=== PATIENT | male | born 1985 | race Two or more races ===

== ENCOUNTER 2024-07-26 07:54 | Outpatient (AMB) | payer BC, SELFPAY ==
--- OUTSIDE RECORDS SUMMARY | 2024-07-26 07:57 | XMS_ITS | Clinical Summary ---
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 DX:Erosion of gastroesophageal junction Asthma 07/01/2006 DX:Asthma Family History Medical History Relation Name Comments Asthma Brother 1 Esophageal cancer Father Other: esophageal cancer Father Breast cancer Paternal Grandmother Relation Name Status Comments Brother 1 Alive 2,one has asthm a Brother 2 Alive 1, step sister Father both healthy Maternal Grandfather Mother Alive Paternal Grandmother Social History Tobacco Use Types Packs/Day Years Used Date Smoking Tobacco: Never Smokeless Tobacco: Never Alcohol Use Standard Drinks/Week Comments Yes 0 (1 standard drink = 0.6 oz pur e alcohol) Sex and Gender Information Value Date Recorded Sex Assigned at Not on file Legal Sex Male 11:10 PM EST Gender Identity Not on file Sexual Orientation Not on file Obstetrics History Last Filed Vital Signs Vital Sign Reading Time Taken Comments Blood Pressure 132/79 11/30/2023 12:29 PM EDT Pulse 83 11/30/2023 12:29 PM EDT Temperature - - Respiratory Rate - - Oxygen Saturation - - Inhaled Oxygen Concentration - - Weight 83.7 kg (184 lb 8 oz) 11/30/2023 12:29 PM EDT Height 179.1 cm (5' 10.5 ) 11/30/2023 12:29 PM E DT Body Mass Index 26.1 11/30/2023 12:29 PM EDT Plan of Treatment Upcoming Encounters Date Type Department Care Team (Late st Contact Info) Description 12/09/2024 8:30 AM EDT Office Visit Internal Medicine - [address] [address] Santy Shen MD [address] [place] [id number] Health Maintenance Due Date Last Done Comments Hepatitis B Vaccines (1 of 3 - 19+ 3-dose series) 02/06/2003 Pneumococcal Vaccine: Pediatrics (0 to 5 Years) and At-Risk Patients (6 to 64 Years) (2 of 2 - PCV) 09/10/2016 09/11/2015 Depression Screening 01/25/2022 HIV Screening 01/25/2022 Hepatitis C Screening 01/25/2022 Social Influencers of Health Screening 01/25/2022 COVID-19 Vaccine (3 - 2023- season) 2023 06/27/2020, 05/31/2020 Cholesterol Screening (Lipid Panel) 11/29/2028 11/30/2023 DTaP,Tdap,and Td Vaccines (3 - Td or Tdap) 11/28/2032 11/28/2022, 03/04/2012 Meningococcal ACWY Vaccine Aged Out 10/14/2002, No longer eligible based on patient's age to complete this topic Influenza Vaccine Completed 11/30/2023, , 11/22/2021, Additional history exists HIB Vaccines Aged Out No longer eligi ble based on patient's age to complete this topic HPV Vaccines Aged Out No longer eligi ble based on patient's age to complete this topic Hepatitis A Vaccines Aged Out No long er eligible based on patient's age to complete this topic IPV Vaccines Aged Out No longer eligi ble based on patient's age to complete this topic MMR Vaccines Aged Out No longer eligi ble based on patient's age to complete this topic Meningococcal B Vaccine Aged Out No l onger eligible based on patient's age to complete this topic RSV Immunization Patients Under 20 months Aged Out No longer eligible based on patient's age to complete this topic Varicella Vaccines Aged Out No longer eligible based on patient's age to complete this topic Insurance [facility] Care Teams Hospitality Ambassador Relationship Specialty Start Date End Date Santy Shen MD PCP - General Internal Medicine 11/25/11
--- NOTE | 2024-07-26 08:02 | MHC.OFFVIS ---
Vital Signs 07/26/24 08:05 Height 5 ft 10.5 in Weight 192 lb 4 oz BMI 27.2 BP 120/78 Blood Pressure Location Lt brachial Position Sitting Pulse 62 Pulse Source Pulse Oximeter Pulse Oximetry (%) 97 Oxygen Delivery Method Room Air Intake Visit Reasons: ENP - Snoring Intake Note: Patient presents [employer] Snoring. Patient states has noticed abnormal breathing during sleep with gasping arousals also noticed during the day. patient also states both mother and brother had sleep studies and both are now on CPAP. Accompanied by: Self / Same As Patient Allergies cat dander Allergy (Unknown, Verified 07/26/24 08:06) Unknown Seasonal Allergies Allergy (Unknown, Verified 07/26/24 08:06) Unknown HPI Comments Details: 39 year old male, presents for sleep evaluation referred to us by his PCP. His c/o gasping arousals with pauses daily and loud snoring throughout the night for years. He goes to bed at 10pm and gets up at 6am. He has asthma and environmental allergies, has an inhaler prn use. He talks in his sleep and grinds his teeth and does not use a mouth gaurd. Vivid dreams, recurring like spiders jumping on him. Denies morning headaches. He has RLS symptoms, and notices both feet are really uncomfortable with a wierd tingling sensation and he needs to move his feet and flex them. Mood tends to fluctuate and he is seeing a therapist for the last year. His memory is good, being evaluated for ADHD, his stm can be poor. 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 Labs T [facility] Medical History Seasonal allergies Asthma Surgical History H/O vasectomy S/P laser trabeculoplasty of eye Hx of appendectomy Social History Alcohol intake: current Alcohol intake frequency: a few times a month Patient Tobacco Use Status: Never used Tobacco Physical Exam Vital Signs: Last Vital Signs Pulse 62 07/26/24 08:05 BP 120/78 07/26/24 08:05 Pulse Ox 97 07/26/24 08:05 Oxygen Delivery Method Room Air 07/26/24 08:05 BMI result Body Mass Index 27.2 Const General: cooperative, comfortable and no acute distress Orientation/consciousness: patient oriented x3 HEENT Face and sinus: Yes face symmetric Teeth and gingiva: other (M[place]ampti score is 3) Eyes Pupils: Equal, round and reactive pupils present Neck Neck: Yes full ROM and Yes supple Resp Effort & Inspection: normal respiratory effort and able to speak in complete sentences Neuro General: patient oriented x3 and moves all extremities Cranial nerves: Yes Facial sensation intact/muscles of mastication intact, Yes Equal, round and reactive pupils present, Yes Normal accommodation reflex present, Yes Normal facial strength present, Yes Midline tongue present, Yes Ability to bilaterally rotate head present and Yes Ability to bilaterally elevate shoulders present Cognition (Neuro): normal cognition Gait exam (Neuro): Normal gait present Motor exam (neuro): 5/5 motor strength present throughout and Normal motor muscle tone present throughout Deep tendon reflexes (DTR's): Right triceps reflex intensity grade: 2+, Left triceps reflex intensity grade: 2+, Rt Biceps (C5, C6): 2+, Left biceps reflex intensity grade: 2+, Right brachioradialis reflex intensity grade: 2+, Left brachioradialis reflex intensity grade: 2+, Right patellar reflex intensity grade: 2+, Left patellar reflex intensity grade: 2+, Right ankle reflex intensity grade: 2+ and Left ankle reflex intensity grade: 2+ Psych Appearance: grossly normal Attitude: cooperative Thought process: Normal thought process present Thought content: Normal thought content present Assessment & Plan Assessment & Plan (1) Excessive daytime sleepiness: Code(s): G47.19 - Other hypersomnia Category: Medical (2) Loud snoring: Code(s): R06.83 - Snoring Category: Medical (3) Chronic fatigue: Code(s): R53.82 - Chronic fatigue, unspecified Category: Medical Plan HST for sleep disturbances Labs to r/o deficiencies, anemia etc. f/u in 3 months Orders: Orders Methylmalonic Acid Today G47.19 - Other hypersomnia, G47.9 - Sleep disorder, unspecified, R53.83 - Other fatigue Vitamin D 25-OH Total Today G47.19 - Other hypersomnia Vitamin B12 and Folate Today G47.19 - Other hypersomnia Complete Blood Count no Diff Today G47.19 - Other hypersomnia Comprehensive Met. Panel Today G47.19 - Other hypersomnia Ferritin Today G47.19 - Other hypersomnia Homocysteine Today G47.19 - Other hypersomnia, G47.9 - Sleep disorder, unspecified, R53.83 - Other fatigue RT home sleep study Today G47.19 - Other hypersomnia TSH reflex Free T4 Today G47.19 - Other hypersomnia Patient Instructions: Sleep Hygiene provided: set a scheduled bedtime and wake time to help regulate the circadian rhythm and balance the release of pituitary hormones. Sleep in a dark room, temperatures below 68 degrees, and no devices n bed. Limit caffeinated products 6 hours prior to bed, and limit fluids 2-4 hours prior to bed. Gentle night yoga, diffusing essential oils, and playing soft music can be relaxing. Coding Level of Care Code New Pt Level 4 (71228) Diagnoses Excessive daytime sleepiness G47.19 Loud snoring R06.83 Chronic fatigue R53.82 Time Spent (min) 30 Comment Evaluation Sleep Questionnaire Difficulty falling asleep: Yes Difficulty staying asleep?: Yes Number of arousals: 4-5 Snoring: Yes Witnessed apneas: Yes Gasping arousals: Yes Nocturia: No GERD: No Vivid dreams: Yes Acting out dreams: Yes Abnormal behavior in sleep: No Abnormal movements in sleep: No Morning headaches: No Excessive daytime sleepiness: No Daytime naps: No Restless legs: Yes Hallucinations: No Sleep paralysis: No Drop attacks: No Sleep Study: No CPAP: No
[2024-07-26 08:05] VITALS: BP 120/78; PULSE 62; O2SAT 97; BMI 27.2
== END 2024-07-26 08:45 | disposition home or self-care (01) ==
PROVIDERS: PCP Internal Medicine; Visit Provider Physician Assistant Medical
DX: G47.19 Other hypersomnia (principal); R06.83 Snoring; R53.82 Chronic fatigue, unspecified
CPT/HCPCS: 99204

== ENCOUNTER → 2024-10-04 09:58 | Outpatient (REF) | payer BC, SELFPAY ==
--- OUTSIDE RECORDS SUMMARY | 2024-10-04 11:08 | XMS_ITS ---
[facility] Name [facility] Organization [facility] Care Team Organization Name Specialty Phone Email Start Date End Da te [facility] Ruth Ann Barr APRN Primary Care 06/23/2022 10/05/2023
--- OUTSIDE RECORDS SUMMARY | 2024-10-04 11:08 | XMS_ITS | Clinical Summary ---
Author Organization [facility] Address [address] [place] [address] Phone Care Team Providers Care Take Off Man Name Role Phone Santy Shen MD Primary Care Provider [phone] Surgical History Surgery Date Site/Laterality Comments APPENDECTOMY PROCEDURE: CA APPENDECTOMY EYE SURGERY PROCEDURE: CA TRABECULOPLASTY BY LASER SURGERY VASECTOMY PROCEDURE: CA VASECTOMY UNI/BI SPX W/POSTOP SEMEN EXAMS Medical [...] AM EDT Office Visit Internal Medicine - [address] [address] Santy Shen MD [address] [place] [id number] Health Maintenance Due Date Last Done Comments Hepatitis B Vaccines (1 of 3 - 19+ 3-dose series) 02/06/2003 Pneumococcal Vaccine: Pediatrics (0 to 5 Years) and At-Risk Patients (6 to 49 Years) (2 of 2 - PCV) 09/10/2016 09/11/2015 HIV Screening 01/25/2022 Hepatitis C Screening 01/25/2022 Social Influencers of Health Screening 01/25/2022 COVID-19 Vaccine ( season) 2023 12/04/2022, 03/14/2022, 11/14/2020, Additional history exists Depression Screening 02/17/2024 Influenza Vaccine (#1) 2024 , 11/28/2022, 11/22/2021, Additional history exists Cholesterol Screening (Lipid Panel) 11/29/2028 11/30/2023 DTaP,Tdap,and Td Vaccines (3 - Td or Tdap) 11/28/2032 11/28/2022, 03/04/2012 Meningococcal ACWY Vaccine Aged Out 10/14/2002, No longer eligible based on patient's age to complete this topic HIB Vaccines Aged Out No longer eligi [...] on patient's age to complete this topic Procedures Procedure Name Priority Date/Time Associated Diagnosis Comments METHYLMALONIC ACID, SERUM Routine 07/26/2024 10:07 AM EDT Fatigue Sleep disorder Other hypersomnia VITAMIN D 25 HYDROXY Routine 07/26/2024 10:07 AM EDT Fatigue Sleep disorder Other hypersomnia COMPLETE BLOOD COUNT Routine 07/26/2024 10:07 AM EDT Fatigue Sleep disorder Other hypersomnia VITAMIN B12 AND FOLATE Routine 10:07 AM EDT Fatigue Sleep disorder Other hypersomnia COMPREHENSIVE METABOLIC PANEL Routine 07/26/2024 10:07 AM EDT Fatigue Sleep disorder Other hypersomnia FERRITIN Routine 07/26/2024 10:07 AM EDT Fatigue Sleep disorder Other hypersomnia HOMOCYSTEINE, SERUM Routine 07/26/2024 1 0:07 AM EDT Fatigue Sleep disorder Other hypersomnia THYROID STIMULATING HORMONE WITH REFLEX TO FREE T4 AND FREE T3 Routine 07/26/2024 10:07 AM EDT Fatigue Sleep disorder Other hypersomnia from Last 3 Months Results * Thyroid stimulating hormone with reflex to free t4 and free t3 (07/26/2024 10:07 AM EDT) TSH 1.72 0.40 - 4.00 mcIU/mL LAB CHEMISTRY METHOD 07/26/2024 4:[address] [facility] Blood Venous blood specimen / Unknown Venipuncture / Unknown 07/26/2024 10:07 AM EDT 07/26/2024 10:07 AM EDT Cherri ARAIZA LAB BLOOD ORDERABLES Final Resu lt Performing Organization Address [facility]/ZIP Co de Phone Number [facility] [address] [place] [address], * Vitamin B12 and folate (07/26/2024 10:07 AM EDT) [facility] Vitamin B-12 375 250 - 900 pcg/mL LAB CHEMISTRY METHOD 07/26/2024 4:[address] [facility] Folate 11.8 2.8 - 17.0 ng/ml LAB CHEMISTRY METHOD 07/26/2024 4:[address] [facility] Blood Venous blood specimen / Unknown Venipuncture / Unknown 07/26/2024 10:07 AM EDT 07/26/2024 10:07 AM EDT Cherri Mt [place] LAB BLOOD ORDERABLES Final Resu lt Performing Organization Address [facility] [facility] de Phone Number [facility] [address] [place] [address], * Methylmalonic acid, serum (07/26/2024 10:07 AM EDT) [facility] Methylmalonic Acid 0.15 <0.40 umol/L 08/01/2024 5:28 AM EDT [facility] Comment: If applicable, any drug confirmation testing reported here was developed and the performance characteristics determined by [facility]. This confirmation testing has not been cleared or approved by the FDA. The laboratory is regulated under CLIA as qualified to perform high-complexity testing. This test is used for patient testing purposes. It should not be regarded as investigational or for research. Test performed at [facility], [facility] [address] [place] [address] Farzana Soto MD, PhD - [employer] Blood Venous blood specimen / Unknown Venipuncture / Unknown 07/26/2024 10:07 AM EDT 07/26/2024 10:07 AM EDT [facility] LAB BLOOD ORDERABLES Final Resu lt [facility] [address] [place] [address] * (ABNORMAL) Vitamin D 25 hydroxy (07/26/2024 10:07 AM EDT) Pathologist [facility] Vit D, 25-Hydroxy 18.8(L) 30.0 - 80.0 ng/mL LAB CHEMISTRY METHOD 07/26/2024 4:[address] [facility] Blood Venous blood specimen / Unknown Venipuncture / Unknown 07/26/2024 10:07 AM EDT 07/26/2024 10:07 AM EDT [facility] LAB BLOOD ORDERABLES Final Resu lt Performing Organization Address City/[facility]/ZIP Co de Phone Number [facility] [address] [place] [address], * (ABNORMAL) Complete blood count (07/26/2024 10:07 AM EDT) [facility] WBC 4.9 4.8 - 10.8 K/mcL LAB HEMETOLOGY METHOD 07/26/2024 12:[address] [facility] RBC 4.70 4.50 - 5.50 M/mcL LAB HEMETOLOGY METHOD 07/26/2024 12:[address] [facility] Hemoglobin 14.1 13.5 - 17.5 g/dL LAB HEMETOLOGY METHOD 07/26/2024 12:[address] [facility] Hematocrit 41.6(L) 42.0 - 54.0 % LAB HEMETOLOGY METHOD 07/26/2024 12:[address] [facility] MCV 87.9 79.0 - 98.0 FL LAB HEMETOLOGY METHOD 07/26/2024 12:[address] [facility] MCH 29.8 27.0 - 32.0 pcg LAB HEMETOLOGY METHOD 07/26/2024 12:[address] [facility] MCHC 33.9 32.0 - 37.0 g/dL LAB HEMETOLOGY METHOD 07/26/2024 12:11 PM [facility] RDW 12.5 11.0 - 15.0 % LAB HEMETOLOGY METHOD 07/26/2024 12:11 PM [facility] Platelets 202 130 - 400 K/mcL LAB HEMETOLOGY METHOD 07/26/2024 12:11 PM [facility] MPV 10.6 7.0 - 11.0 FL LAB HEMETOLOGY METHOD 07/26/2024 12:11 PM [facility] NRBC 0.0 <1.0 % LAB HEMETOLOGY METHOD 07/26/2024 12:11 PM [facility] NRBC Absolute 0.00 <0.10 K/mcL LAB HEMETOLOGY METHOD 07/26/2024 12:11 PM [facility] Blood Venous blood specimen / Unknown Venipuncture / Unknown 07/26/2024 10:07 AM EDT 07/26/2024 10:07 AM EDT us Cherri ARAIZA LAB BLOOD ORDERABLES Final Resu lt [facility] [address] [place] [address], * Homocysteine, total (07/26/2024 10:07 AM EDT) Homocysteine 8.6 3.2 - 10.7 mcmol/L LAB CHEMISTRY METHOD 07/26/2024 4:49 PM [facility] Blood Venous blood specimen / Unknown Venipuncture / Unknown 07/26/2024 10:07 AM EDT 07/26/2024 10:07 AM EDT Cherri ARAIZA LAB BLOOD ORDERABLES Final Resu lt [facility] [address] [place] [address], [place] [phone] * Ferritin (07/26/2024 10:07 AM EDT) Pathologist [facility] Ferritin 64 26 - 388 ng/mL LAB CHEMISTRY METHOD 07/26/2024 4:[address] [facility] Blood Venous blood specimen / Unknown Venipuncture / Unknown 07/26/2024 10:07 AM EDT 07/26/2024 10:07 AM EDT Cherri ARAIZA LAB BLOOD ORDERABLES Final Resu lt Performing Organization Address City/[facility] [facility]/ZIP Co de Phone Number [facility] [address] [place] [address], [place] [phone] * Comprehensive metabolic panel (07/26/2024 10:07 AM EDT) [facility] Sodium 141 133 - 145 mmol/L LAB CHEMISTRY METHOD 07/26/2024 4:[address] [facility] Potassium 4.6 3.5 - 5.5 mmol/L LAB CHEMISTRY METHOD 07/26/2024 4:[address] [facility] Chloride 108 96 - 110 mmol/L LAB CHEMISTRY METHOD 07/26/2024 4:[address] [facility] CO2 29 21 - 32 mmol/L LAB CHEMISTRY METHOD 07/26/2024 4:[address] [facility] Anion Gap 4 3 - 11 LAB CHEMISTRY METHOD 07/26/2024 4:[address] [facility] Glucose 93 70 - 100 mg/dL LAB CHEMISTRY METHOD 07/26/2024 4:49 PM [facility] BUN 13 5 - 25 mg/dL LAB CHEMISTRY METHOD 07/26/2024 4:49 PM [facility] Creatinine 0.84 0.70 - 1.30 mg/dL LAB CHEMISTRY METHOD 07/26/2024 4:49 PM [facility] eGFR 113 >=60 mL/min/1. 73m2 LAB CHEMISTRY METHOD 07/26/2024 4:49 PM [facility] Comment:Calculation based on the Chronic Kidney Disease Epidemiology Collaboration (CKD-EPI) equation refit without adjustment for race. BUN/Creatinine Ratio 15.5 LAB CHEMISTRY METHOD 07/26/2024 4:49 PM [facility] Calcium 8.9 8.5 - 10.5 mg/dL LAB CHEMISTRY METHOD 07/26/2024 4:49 PM [facility] AST (SGOT) 26 10 - 42 unit/L LAB CHEMISTRY METHOD 07/26/2024 4:49 PM [facility] ALT (SGPT) 44 10 - 60 unit/L LAB CHEMISTRY METHOD 07/26/2024 4:49 PM [facility] Alkaline Phosphatase 85 42 - 121 unit/L LAB CHEMISTRY METHOD 07/26/2024 4:49 PM [facility] Total Protein 7.1 6.0 - 8.0 g/dL LAB CHEMISTRY METHOD 07/26/2024 4:49 PM [facility] Albumin 4.0 3.2 - 5.0 g/dL LAB CHEMISTRY METHOD 07/26/2024 4:49 PM [facility] Total Bilirubin 0.3 0.0 - 1.4 mg/dL LAB CHEMISTRY METHOD 07/26/2024 4:49 PM [facility] Blood Venous blood specimen / Unknown Venipuncture / Unknown 07/26/2024 10:07 AM EDT 07/26/2024 10:07 AM EDT us Cherri ARAIZA LAB BLOOD ORDERABLES Final Resu lt [facility] ([facility]) [facility] [address] [place] [address], [place] [phone] from Last 3 Months Insurance [facility] ([facility]) Care Teams Take Off Man Relationship Specialty Start Date End Date Santy Shen MD PCP - General Internal Medicine 11/25/11
== END ==
LOC: HO.SL 09:58
PROVIDERS: Visit Provider Physician Assistant Medical
DX: G47.19 Other hypersomnia (principal); R06.83 Snoring
CPT/HCPCS: 95806

== ENCOUNTER → 2024-10-04 10:23 | Outpatient (BNV) | payer BC, SELFPAY | PROVIDERS: Visit Provider Psychiatry & Neurology Neurology | DX: R06.83 Snoring (principal) | CPT/HCPCS: 95806 ==

== ENCOUNTER 2024-10-26 08:56 | Outpatient (AMB) | payer BC, SELFPAY ==
[2024-10-26 08:57] VITALS: BP 118/78; PULSE 70; O2SAT 98; BMI 27.2
--- NOTE | 2024-10-26 08:57 | MHC.OFFVIS ---
Vital Signs 10/26/24 08:57 Height 5 ft 10.5 in Weight 192 lb BMI 27.2 BP 118/78 Blood Pressure Location Lt brachial Position Sitting Pulse 70 Pulse Source Pulse Oximeter Pulse Oximetry (%) 98 Oxygen Delivery Method Room Air Intake Visit Reasons: 3m follow up Intake Note: Patient presents follow up Sleep. Labs/HST in chart(AHI-<1, IVELISSE-83%). Accompanied by: Self / Same As Patient Allergies cat dander Allergy (Unknown, Verified 10/26/24 08:59) Unknown Seasonal Allergies Allergy (Unknown, Verified 10/26/24 08:59) Unknown HPI Comments Details: 39 year old male presents for a follow up visit to review his HST results. 09/2024 HST c/w AHI of <1 and oxygen nadirs at 83%. Moderate snoring. His c/o him gasping for air and multiple arousals with pauses daily. He snores loudly at night for years. He goes to bed at 10pm and gets up at 6am. He has asthma and environmental allergies, uses his inhaler as needed. He talks in his sleep and grinds his teeth. He has mouth guard and does not like it or use. He has vivid dreams, repetitive will see spiders jumping on him. He denies morning headaches. He has RLS symptoms, and notices an uncomfortable sensation in his feet bilaterally. He has a with an uncomfortable tingling sensation which causes him to move and flex his feet. He will get out of bed and stretch his feet or walk. His mood fluctuates and he is seeing a therapist since last year. His memory is good, he is being evaluated for ADHD, his stm can be poor. 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 [facility] Medical History Seasonal allergies Asthma Surgical History H/O vasectomy S/P laser trabeculoplasty of eye Hx of appendectomy Social History Alcohol intake: current Alcohol intake frequency: a few times a month Patient Tobacco Use Status: Never used Tobacco Physical Exam Vital Signs: Last Vital Signs Pulse 70 10/26/24 08:57 BP 118/78 10/26/24 08:57 Pulse Ox 98 10/26/24 08:57 Oxygen Delivery Method Room Air 10/26/24 08:57 BMI result Body Mass Index 27.2 Const General: cooperative, comfortable and no acute distress Orientation/consciousness: patient oriented x3 HEENT Face and sinus: Yes face symmetric Teeth and gingiva: other (Mallampti score is 3) Eyes Pupils: Equal, round and reactive pupils present Neck Neck: Yes full ROM and Yes supple Resp Effort & Inspection: normal respiratory effort and able to speak in complete sentences Neuro General: patient oriented x3 and moves all extremities Cranial nerves: Yes Facial sensation intact/muscles of mastication intact, Yes Equal, round and reactive pupils present, Yes Normal accommodation reflex present, Yes Normal facial strength present, Yes Midline tongue present, Yes Ability to bilaterally rotate head present and Yes Ability to bilaterally elevate shoulders present Cognition (Neuro): normal cognition Gait exam (Neuro): Normal gait present Motor exam (neuro): 5/5 motor strength present throughout and Normal motor muscle tone present throughout Psych Appearance: grossly normal Mental Status: mental status grossly normal Speech and movement: Normal speech and movement present Attitude: cooperative Thought process: Normal thought process present Thought content: Normal thought content present Assessment & Plan Assessment & Plan (1) Excessive daytime sleepiness: Code(s): G47.19 - Other hypersomnia Category: Medical (2) RLS (restless legs syndrome): Code(s): G25.81 - Restless legs syndrome Category: Medical (3) Loud snoring: Code(s): R06.83 - Snoring Category: Medical (4) Chronic fatigue: Code(s): R53.82 - Chronic fatigue, unspecified Category: Medical Plan HST reviewed with pt. today in detail, it does not qualify for sleep apnea, he does snore moderately will refer for mouth guard/ oral appliance with dentist such as somno-guard to eliminate snoring. Chronic fatigue Labs reviewed with pt today Vit D is low. Start Vitamin D 2000units daily. RLS Start B12 1000mcg qhs. Start Magnesium 400mg po qpm for leg cramps. F/U in 6 months Medications: New magnesium oxide 400 mg PO DAILY 90 tabs 0RF leg cramps 3 months MDD 400mg G25.81 - Restless legs syndrome mecobalamin (vitamin B12) place tablet under tongue and allow to dissolve for at least30 secs before swallowing 1,000 mcg sublingual DAILY 90 tabs 3RF anemia 3 months MDD 1000mcg G25.81 - Restless legs syndrome, G47.19 - Other hypersomnia Refilled cholecalciferol (vitamin D3) take one tablet by mouth daily at night 50 mcg PO DAILY 90 caps 3RF low vitamin d 90 days MDD 2000 unit R53.82 - Chronic fatigue, unspecified Patient Instructions: Sleep Hygiene provided: set a scheduled bedtime and wake time to help regulate the circadian rhythm and balance the release of pituitary hormones. Sleep in a dark room, temperatures below 68 degrees, and no devices n bed. Limit caffeinated products 6 hours prior to bed, and limit fluids 2-4 hours prior to bed. Gentle night yoga, diffusing essential oils, and playing soft music can be relaxing. Call the office if you need a sleep dentistry referral or if you chose to use your own dentist for a mouth guard that works also, please inquire about the somno-guard and f/u in 6 monhts. Coding Level of Care Code Est Pt Level 4 (54829) Diagnoses Excessive daytime sleepiness G47.19 RLS (restless legs syndrome) G25.81 Loud snoring R06.83 Chronic fatigue R53.82
--- OUTSIDE RECORDS SUMMARY | 2024-10-26 10:31 | XMS_ITS | Clinical Summary ---
Author Organization [facility] Address [address] [place] [address] Phone Care Team Providers Care Operations Director Name Role Phone Santy Shen MD Primary Care Provider [phone] Surgical History Surgery Date Site/Laterality Comments APPENDECTOMY [...] AM EDT Office Visit Internal Medicine - [address] [phone] Santy Shen MD [address] [place] [id number] Health Maintenance Due Date Last Done Comments Hepatitis B Vaccines (1 of 3 - 19+ 3-dose series) 02/06/2003 Pneumococcal Vaccine: Pediatrics (0 to 5 Years) and At-Risk Patients (6 to 49 Years) (2 of 2 - PCV) 09/10/2016 09/11/2015 HIV Screening 01/25/2022 Hepatitis C Screening 01/25/2022 Social Influencers of Health Screening 01/25/2022 Depression Screening 02/17/2024 COVID-19 Vaccine ( season) 2024 12/04/2022, 03/14/2022, 11/14/2020, Additional history exists Influenza Vaccine (#1) 2024 , 11/28/2022, 11/22/2021, [...] LAB CHEMISTRY METHOD 07/26/2024 4:56 PM EDT [facility] Blood Venous blood specimen / Unknown Venipuncture / Unknown 07/26/2024 10:07 AM EDT 07/26/2024 10:07 AM EDT Cherri ARAIZA LAB BLOOD ORDERABLES Final Resu lt Performing Organization Address [facility]/ZIP Co de Phone Number [facility] [address] [place] [address], * Vitamin B12 and folate (07/26/2024 10:07 AM EDT) [facility] Vitamin B-12 375 250 - 900 pcg/mL LAB CHEMISTRY METHOD 07/26/2024 4:49 PM EDT [facility] Folate 11.8 2.8 - 17.0 ng/ml LAB CHEMISTRY METHOD 07/26/2024 4:49 PM EDT [facility] Blood Venous blood specimen / Unknown Venipuncture / Unknown 07/26/2024 10:07 AM EDT 07/26/2024 10:07 AM EDT Cherri [place] LAB BLOOD ORDERABLES Final Resu lt Performing Organization Address [facility] de Phone Number [facility] [address] [place] [address], * Methylmalonic acid, serum (07/26/2024 10:07 AM EDT) [facility] Methylmalonic Acid 0.15 <0.40 umol/L 08/01/2024 5:28 AM EDT [facility] Comment: If applicable, any drug confirmation testing reported here was developed and the performance characteristics determined by [facility]. This confirmation testing has not been cleared or approved by the FDA. The laboratory is regulated under CLIA as qualified to perform high-complexity testing. This test is used for patient testing purposes. It should not be regarded as investigational or for research. Test performed at [facility], [facility] [address] [place] [address] Farzana Soto MD, PhD - [employer] Blood Venous blood specimen / Unknown Venipuncture / Unknown 07/26/2024 10:07 AM EDT 07/26/2024 10:07 AM EDT [facility] LAB BLOOD ORDERABLES Final Resu lt [facility] [address] [place] [address] * (ABNORMAL) Vitamin D 25 hydroxy (07/26/2024 10:07 AM EDT) Pathologist [facility] Vit D, 25-Hydroxy 18.8(L) 30.0 - 80.0 ng/mL LAB CHEMISTRY METHOD 07/26/2024 4:56 PM EDT [facility] Blood Venous blood specimen / Unknown Venipuncture / Unknown 07/26/2024 10:07 AM EDT 07/26/2024 10:07 AM EDT [facility] LAB BLOOD ORDERABLES Final Resu lt Performing Organization Address City/[facility]/ZIP Co de Phone Number [facility] [address] [place] [address], * (ABNORMAL) Complete blood count (07/26/2024 10:07 AM EDT) [facility] WBC 4.9 4.8 - 10.8 K/mcL LAB HEMETOLOGY METHOD 07/26/2024 12:11 PM EDT [facility] RBC 4.70 4.50 - 5.50 M/mcL LAB HEMETOLOGY METHOD 07/26/2024 12:11 PM EDT [facility] Hemoglobin 14.1 13.5 - 17.5 g/dL LAB HEMETOLOGY METHOD 07/26/2024 12:11 PM EDT [facility] Hematocrit 41.6(L) 42.0 - 54.0 % LAB HEMETOLOGY METHOD 07/26/2024 12:11 PM EDT [facility] MCV 87.9 79.0 - 98.0 FL LAB HEMETOLOGY METHOD 07/26/2024 12:11 PM EDT [facility] MCH 29.8 27.0 - 32.0 pcg LAB HEMETOLOGY METHOD 07/26/2024 12:11 PM EDT [facility] MCHC 33.9 32.0 - 37.0 g/dL LAB HEMETOLOGY METHOD 07/26/2024 12:[address] [facility] RDW 12.5 11.0 - 15.0 % LAB HEMETOLOGY METHOD 07/26/2024 12:[address] [facility] Platelets 202 130 - 400 K/mcL LAB HEMETOLOGY METHOD 07/26/2024 12:[address] [facility] MPV 10.6 7.0 - 11.0 FL LAB HEMETOLOGY METHOD 07/26/2024 12:[address] [facility] NRBC 0.0 <1.0 % LAB HEMETOLOGY METHOD 07/26/2024 12:[address] [facility] NRBC Absolute 0.00 <0.10 K/mcL LAB HEMETOLOGY METHOD 07/26/2024 12:[address] [facility] Blood Venous blood specimen / Unknown Venipuncture / Unknown 07/26/2024 10:07 AM EDT 07/26/2024 10:07 AM EDT us Cherri ARAIZA LAB BLOOD ORDERABLES Final Resu lt [facility] [address] [place] [address], * Homocysteine, total (07/26/2024 10:07 AM EDT) Homocysteine 8.6 3.2 - 10.7 mcmol/L LAB CHEMISTRY METHOD 07/26/2024 4:[address] [facility] Blood Venous blood specimen / Unknown Venipuncture / Unknown 07/26/2024 10:07 AM EDT 07/26/2024 10:07 AM EDT Cherri ARAIZA LAB BLOOD ORDERABLES Final Resu lt [facility] [address] [place] [address], [place] [phone] * Ferritin (07/26/2024 10:07 AM EDT) Pathologist [facility] Ferritin 64 26 - 388 ng/mL LAB CHEMISTRY METHOD 07/26/2024 4:28 PM EDT [facility] Blood Venous blood specimen / Unknown Venipuncture / Unknown 07/26/2024 10:07 AM EDT 07/26/2024 10:07 AM EDT Cherri ARAIZA LAB BLOOD ORDERABLES Final Resu lt Performing Organization Address City/[facility]/ZIP Co de Phone Number [facility] [address] [place] [address], [place] [phone] * Comprehensive metabolic panel (07/26/2024 10:07 AM EDT) [facility] Sodium 141 133 - 145 mmol/L LAB CHEMISTRY METHOD 07/26/2024 4:49 PM EDT [facility] Potassium 4.6 3.5 - 5.5 mmol/L LAB CHEMISTRY METHOD 07/26/2024 4:49 PM EDT [facility] Chloride 108 96 - 110 mmol/L LAB CHEMISTRY METHOD 07/26/2024 4:49 PM EDT [facility] CO2 29 21 - 32 mmol/L LAB CHEMISTRY METHOD 07/26/2024 4:49 PM EDT [facility] Anion Gap 4 3 - 11 LAB CHEMISTRY METHOD 07/26/2024 4:49 PM EDT [facility] Glucose 93 70 - 100 mg/dL LAB CHEMISTRY METHOD 07/26/2024 4:[address] [facility] BUN 13 5 - 25 mg/dL LAB CHEMISTRY METHOD 07/26/2024 4:[address] [facility] Creatinine 0.84 0.70 - 1.30 mg/dL LAB CHEMISTRY METHOD 07/26/2024 4:[address] [facility] eGFR 113 >=60 mL/min/1. 73m2 LAB CHEMISTRY METHOD 07/26/2024 4:[address] [facility] Comment:Calculation based on the Chronic Kidney Disease Epidemiology Collaboration (CKD-EPI) equation refit without adjustment for race. BUN/Creatinine Ratio 15.5 LAB CHEMISTRY METHOD 07/26/2024 4:[address] [facility] Calcium 8.9 8.5 - 10.5 mg/dL LAB CHEMISTRY METHOD 07/26/2024 4:[address] [facility] AST (SGOT) 26 10 - 42 unit/L LAB CHEMISTRY METHOD 07/26/2024 4:[address] [facility] ALT (SGPT) 44 10 - 60 unit/L LAB CHEMISTRY METHOD 07/26/2024 4:[address] [facility] Alkaline Phosphatase 85 42 - 121 unit/L LAB CHEMISTRY METHOD 07/26/2024 4:[address] [facility] Total Protein 7.1 6.0 - 8.0 g/dL LAB CHEMISTRY METHOD 07/26/2024 4:[address] [facility] Albumin 4.0 3.2 - 5.0 g/dL LAB CHEMISTRY METHOD 07/26/2024 4:[address] [facility] Total Bilirubin 0.3 0.0 - 1.4 mg/dL LAB CHEMISTRY METHOD 07/26/2024 4:[address] [facility] Blood Venous blood specimen / Unknown Venipuncture / Unknown 07/26/2024 10:07 AM EDT 07/26/2024 10:07 AM EDT us Cherri ARAIZA LAB BLOOD ORDERABLES Final Resu lt [facility] ([facility]) [facility] [address] [place] [address], [place] [phone] from Last 3 Months Insurance [facility] ([facility]) Care Teams Operations Director Relationship Specialty Start Date End Date Santy Shen MD PCP - General Internal Medicine 11/25/11
== END 2024-10-26 09:42 | disposition home or self-care (01) ==
LOC: HO.HSMC 08:56
PROVIDERS: PCP Internal Medicine; Visit Provider Physician Assistant Medical
DX: G47.19 Other hypersomnia (principal); G25.81 Restless legs syndrome; R06.83 Snoring; R53.82 Chronic fatigue, unspecified
CPT/HCPCS: 99214